=== PATIENT | female | born 1970 | race Caucasian/White ===

== ENCOUNTER 2018-06-24 12:44 | Inpatient (IN) | payer OTHER ==
[2018-06-24 13:55] VITALS: BMI 25.8
--- NOTE | 2018-06-24 18:03 | HP ---
CIWA Score Nausea/Vomitin-Int. Nausea w/Dry Heave Muscle Tremors: 4-Moderate,w/Arms Extend Anxiety: 1-Mildly Anxious Agitation: 1-Slight > Activity Paroxysmal Sweats: 3 (Increased facial moisture) Orientation: 1-Uncertain about Date Tacttile Disturbances: 0-None Auditory Disturbances: 0-None Visual Disturbances: 0-None Headache: 0-None Present CIWA-Ar Total Score: 14 - Admission Criteria [facility] Guidelines: Admission for Medically Managed Detox: Requires at least one of the followin. CIWA greater than 12 2. Seizures within the past 24 hours 3. Delirium tremens within the past 24 hours 4. Hallucinations within the past 24 hours 5. Acute intervention needed for co occurring medical disorder 6. Acute intervention needed for co occurring psychiatric disorder 7. Severe withdrawal that cannot be handled at a lower level of care (continued vomiting, continued diarrhea, abnormal vital signs) requiring intravenous medication and/or fluids 8. Patient presents the following: CIWA greater than 12 Admission Criteria Met: Admission criteria met Admission ROS [facility] Chief Complaint: Here for alcohol withdrawal. Allergies/Adverse Reactions: Allergies Allergy/AdvReac Type Severity Reaction Status Date / Time Penicillins Allergy Unknown Verified 06/24/18 18:04 diphenhydramine AdvReac Verified 06/24/18 18:38 [From Benadryl] History of Present Illness: Here for alcohol detox. Alcohol use began at age 29 Nicotine use began at age 23. Denies marijuana use. States around people that smoke marijuana. Patient states drinks day and night. States wants to stop. Last treatment attempt was 7 years ago and was a 28 day program. Longest length of sobriety 1 month. Denie hx seizures. Hx multiple blackouts. Hx Asthma and COPD; Vitamin deficiency (D and B) Hx PND associated w/ gagging Hx: Acid reflux Hx: Athletes foot Hx: Rash in private area x months. (See PE) Hx: Rib pain and has x-rays and MRI's w/o identification of problems. Pain is sometimes sharp, sometimes achy and is currently a '5'. Not associated w/ difficulty breathing. Denies vaginal discharge. Search Terms: Amelia Farrar, 1970 Search Date: 06/24/2018 05:29:46 PM The Drug Utilization Report below displays all of the controlled substance prescriptions, if any, that your patient has filled in the last twelve months. The information displayed on this report is compiled from pharmacy submissions to the Department, and accurately reflects the information as submitted by the pharmacies. This report was requested by: Emi Hernandez | Reference #: [id number] There are no results for the search terms that you entered. Exam Limitations: No Limitations - Ebola screening Have you traveled outside of the country in the last 21 days: No (N) Have you had contact with anyone from an Ebola affected area: No Have you been sick,other than usual withdrawal symptoms: No Do you have a fever: No - Review of Systems Constitutional: Diaphoresis, Changes in sleep (Difficulty falling asleep) EENT: reports: Blurred Vision, Nose Congestion (Has post nasal drip - frequent coughing r/t saliva going down wrong way), Other (Dry eyes - c/o eye irritation) Respiratory: reports: SOB with Exertion, Wheezing Cardiac: reports: No Symptoms Reported GI: reports: Constipated (Last BM watery yesterday.), Nausea, Vomiting (unsure of reason), Indigestion (Hx acid reflux) : reports: Incontinence ("I have a weak bladder". When I cough or throw up I pee) Musculoskeletal: reports: Other ((L) rib and flank pain, evaluated at several ER visits. Pain is sometimes sharp, sometimes achy and is currently a '5'. Not associated w/ difficulty breathing. Increases w/ cough. Present all the time.) Integumentary: reports: Rash (Private area - sometimes itchy.), Other (Athletes ' foot) Neuro: reports: Tremors Endocrine: reports: Increased Thirst Hematology: reports: No Symptoms Reported Psychiatric: reports: Judgement Intact, Agitated, Anxious, Depressed (Denies thoughts of harming self or others) Patient History - Patient Medical History Hx Asthma: Yes Hx Chronic Obstructive Pulmonary Disease (COPD): Yes Hx Cardiac Disorders: No Hx Congestive Heart Failure: No Hx Hypertension: No Hx Hypercholesterolemia: No Hx Pacemaker: No HX Cerebrovascular Accident: No Hx Seizures: No Hx Dementia: No Hx Diabetes: No Hx Gastrointestinal Disorders: Yes (Acid reflux) Hx Liver Disease: No Hx Sexually Transmitted Disorders: No Hx Renal Disease (ESRD): No Hx Thyroid Disease: No Hx Human Immunodeficiency Virus (HIV): No (years ago) Hx Hepatitis C: No Hx Depression: Yes - PPD History Previous Implant?: No Documented Results: Negative w/o proof Implanted On Prior R Admission?: No PPD to be Administered?: Yes - Reproductive History Patient is a Female of Child Bearing Age (11 -55 yrs old): Yes Last Menstrual Period: 05/22/18 Patient : No - Smoking Cessation Smoking history: Current every day smoker Have you smoked in the past 12 months: Yes Aproximately how many cigarettes per day: 10 Hx Chewing Tobacco Use: No Initiated information on smoking cessation: Yes 'Breaking Loose' booklet given: 06/24/18 - Substance & Tx. History Hx Alcohol Use: Yes Hx Substance Use: Yes Substance Use Type: Alcohol Hx Substance Use Treatment: Yes (28 day - 7 years ago, a few attempts on own) - Substances Abused Alcohol Route: Oral Frequency: Daily Amount used: liquor-1/2 gallon Age of first use: 29 Date of Last Use: 06/24/18 Admission Physical Exam [facility]HS - Vital Signs Vital Signs: Vital Signs - 24 hr 06/24/18 13:51 Temperature 98.1 F Pulse Rate 93 H Respiratory 18 Rate Blood Pressure 116/78 - Physical General Appearance: Yes: Within Normal Limits, Mild Distress, Alcohol on Breath , Tremorous, Sweating, Anxious HEENTM: Yes: EOMI, Hearing grossly Normal, Normocephalic, Normal Voice, GINNY, Nasal Congestion, Other (Bilateral Sclera w/ injection. Conjunctiva w/o increased erythema. No exudate/) Respiratory: Yes: Lungs Clear, Normal Breath Sounds, No Respiratory Distress Neck: Yes: No masses,lesions,Nodules, Supple Breast: Yes: Breast Exam Deferred Cardiology: Yes: Regular Rhythm, Regular Rate, S1, S2 Abdominal: Yes: Non Tender, Soft, Increased Bowel Sounds Genitourinary: Yes: Incontinient (Stress incontinence) Back: Yes: Normal Inspection Musculoskeletal: Yes: full range of Motion, Gait Steady Extremities: Yes: Normal Capillary Refill, Normal Range of Motion, Tremors ( Tremors of hands at rest and grossly increases when arms elevated) Neurological: Yes: qa consultant II-XII NML intact, Fully Oriented, Alert, Motor Strength 5/5, Normal Response Integumentary: Yes: Normal Color, Dry, Warm, Rash (Area of increased erythema w / 1 mm raised reddened lesions, non-pustular, at neck, inguinal folds, and buttock area.), Other (Thickened skin, cracks between toes. Thickened dark, flaky toenails.) Lymphatic: Yes: Within Normal Limits - Diagnostic (1) Alcohol dependence with uncomplicated withdrawal Current Visit: Yes Status: Acute (2) COPD with asthma Current Visit: Yes Status: Chronic (3) Acid reflux Current Visit: Yes Status: Chronic Qualifiers: Esophagitis presence: esophagitis presence not specified Qualified Code(s) : K21.9 - Gastro-esophageal reflux disease without esophagitis (4) Tinea pedis Current Visit: Yes Status: Chronic Qualifiers: Laterality: bilateral Qualified Code(s): B35.3 - Tinea pedis (5) Onychomycosis Current Visit: Yes Status: Chronic (6) Rash and nonspecific skin eruption Current Visit: Yes Status: Chronic (7) Vitamin deficiency, unspecified Current Visit: Yes Status: Chronic (8) Nicotine dependence, uncomplicated Current Visit: Yes Status: Chronic Qualifiers: Nicotine product type: cigarettes Qualified Code(s): F17.210 - Nicotine dependence, cigarettes, uncomplicated (9) Personal history of other diseases of urinary system Current Visit: Yes Status: Chronic Comment: States has stress incontinence (10) Bone pain Current Visit: Yes Status: Chronic Comment: Chronic (L) rib and bone pain w/ o evidence of pathology Cleared for Admission [facility] - Detox or Rehab [facility] Level of Care: Medically Managed Detox Regimen/Protocol: Librium [facility] Breath Alcohol Content Breath Alcohol Content: 0.211 Urine Pregancy Test - Result Urine Test Results: Negative- NO Line Present Urine Drug Screen - Results Drug Screen Negative: No Urine Drug Screen Results: THC-Marijuana
[2018-06-24] MEDS ORDERED: NICOTINE POLACRILEX 2 MG GUM BC PRN (18:51)
[2018-06-24] MEDS ORDERED: MAG HYDROX/AL HYDROX/SIMETH 30 ML UNIT-DOSE CUP PO PRN (18:51)
[2018-06-24] MEDS ORDERED: MAGNESIUM CITRATE 300 ML BOTTLE PO PRN (18:51)
[2018-06-24] MEDS ORDERED: LOPERAMIDE HCL 2 MG CAPSULE PO PRN (18:51)
[2018-06-24] MEDS ORDERED: MAGNESIUM HYDROX 2400MG/30ML ORAL SUSPENSION 30 ML CUP PO PRN (18:51)
[2018-06-24] MEDS ORDERED: ACETAMINOPHEN 325 MG TABLET (FP) PO PRN (18:51)
[2018-06-24] MEDS ORDERED: MENTHOL/PHENOL 1 EACH UD MM PRN (18:51)
[2018-06-24] MEDS ORDERED: hydrOXYzine PAMOATE 25 MG CAPSULE (FP) PO PRN (18:51)
[2018-06-24] MEDS ORDERED: IBUPROFEN 400 MG TABLET (FP) PO PRN (18:51)
[2018-06-24] MEDS ORDERED: ARTIFICIAL TEARS (POLYVINYL ALCOHOL) OPTH DROPS OU PRN (18:57)
[2018-06-24] MEDS ORDERED: chlordiazePOXIDE HCL 25 MG CAPSULE PO PRN (19:05)
[2018-06-24] MEDS ORDERED: chlordiazePOXIDE 5 MG CAPSULE PO ONE (19:35)
[2018-06-24] MEDS ORDERED: chlordiazePOXIDE 5 MG CAPSULE PO PRN (21:10)
[2018-06-24] MEDS: chlordiazePOXIDE HCL 25 MG CAPSULE PO SCH (22:13)
[2018-06-24] MEDS: P-EPHED 60MG/TRIPROLIDI 2.5MG TABLET PO SCH (22:13)
[2018-06-24] MEDS: TOLNAFTATE 1% CREAM 15 GM TUBE TP SCH (22:13)
[2018-06-24] MEDS: THIAMINE HCL 100 MG TABLET (FP) PO SCH (22:13)
[2018-06-24 23:06] LABS: URINE APPEARANCE SLCLOUDY; URINE BILIRUBIN NEGATIVE (<2.0 mg/dL); URINE COLOR AMBER; URINE GLUCOSE (UA) NEGATIVE (NEGATIVE); URINE KETONE NEGATIVE (NEGATIVE); URINE LEUK ESTERASE NEGATIVE (NEGATIVE); URINE NITRITE NEGATIVE (NEGATIVE); URINE PROTEIN 3+ (NEGATIVE); URINE UROBILINOGEN 4.0 E.U/dl mg/dL (0.2-1.0)
[2018-06-24 23:11] LABS: EPI CELLS FEW /HPF (FEW); URINE BACTERIA RARE /hpf (NONE SEEN); URINE MUCUS MANY
[2018-06-25] MEDS: chlordiazePOXIDE HCL 25 MG CAPSULE PO SCH ×3 (05:43→18:09)
[2018-06-25] MEDS: PRENATAL VITAMINS W/ FOLIC ACID TABLET (FP) PO SCH (10:20)
[2018-06-25] MEDS: NICOTINE 14 MG/24 HOURS TOPICAL PATCH TD SCH (10:20)
[2018-06-25] MEDS: PANTOPRAZOLE 20 MG TABLET (FP) PO SCH (10:20)
[2018-06-25] MEDS: TOLNAFTATE 1% CREAM 15 GM TUBE TP SCH ×2 (10:23→22:19)
[2018-06-25] MEDS: CLOTRIMAZOLE TP SCH ×3 (10:39→22:18)
[2018-06-25] MEDS: BETAMETHASONE DIPROPIONATE TP SCH ×3 (10:39→22:18)
[2018-06-25] MEDS: P-EPHED 60MG/TRIPROLIDI 2.5MG TABLET PO SCH ×2 (10:39→22:18)
[2018-06-25] MEDS: [UNRECOGNIZED DRUG - OTHER] TP SCH ×3 (10:39→22:18)
[2018-06-25 10:51] LABS: HEMATOCRIT 42.8 % (32.4-45.2); HEMOGLOBIN 14.3 GM/dL (10.7-15.3); MCH 32.2 pg (25.7-33.7); MCHC 33.3 g/dl (32.0-36.0); MEAN CELL VOLUME 96.7 fl (80-96); MEAN PLT VOLUME 8.5 fl (7.5-11.1); PLATELET COUNT 161 K/MM3 (134-434); RBC 4.42 M/mm3 (3.60-5.2); RDW 17.2 % (11.6-15.6); WHITE BLOOD COUNT 7.9 K/mm3 (4.0-10.0)
[2018-06-25 11:21] LABS: ALBUMIN 3.3 g/dl (3.4-5.0); ALK PHOS 189 U/L (45-117); ANION GAP 11 MMOL/L (8-16); BLOOD UREA NITROGEN 8 mg/dL (7-18); CALCIUM 8.7 mg/dL (8.5-10.1); CHLORIDE 96 mmol/L (98-107); CO2 29 mmol/L (21-32); CREATININE 0.7 mg/dL (0.55-1.3); GLUCOSE,RANDOM 112 mg/dL (74-106); SGOT/AST 127 U/L (15-37); SGPT/ALT 123 U/L (13-61); SODIUM 136 mmol/L (136-145); TOT PROT 7.3 g/dl (6.4-8.2)
[2018-06-25 11:27] LABS: POTASSIUM 2.9 mmol/L (3.5-5.1)
--- NOTE | 2018-06-25 13:51 | PN ---
S CIWA - CIWA Score Nausea/Vomitin Muscle Tremors: None Anxiety: 3 Agitation: 2 Paroxysmal Sweats: No Perspiration Orientation: 0-Oriented Tacttile Disturbances: 3-Moderate Itch/Numb/Burn Auditory Disturbances: 1-Very Mild Visual Disturbances: 2-Mild Sensitivity Headache: 0-None Present CIWA-Ar Total Score: 14 S Progress Note (SOAP) Subjective: Stomach Cramping, Interrupted Sleep, Nausea. Objective: PATIENT A & O X 3, OBSERVED AMBULATING ON UNIT. IN NO ACUTE DISTRESS. 06/25/18 13:49 Laboratory Tests 06/24/18 06/25/18 06/25/18 22:30 07:00 07:00 WBC 7.9 RBC 4.42 Hgb 14.3 Hct 42.8 MCV 96.7 H MCH 32.2 MCHC 33.3 RDW 17.2 H Plt Count 161 MPV 8.5 Sodium 136 Potassium 2.9 L* Chloride 96 L Carbon Dioxide 29 Anion Gap 11 BUN 8 Creatinine 0.7 Creat Clearance w eGFR > 60 Random Glucose 112 H Calcium 8.7 Total Bilirubin 1.0 AST 127 H ALT 123 H Alkaline Phosphatase 189 H Total Protein 7.3 Albumin 3.3 L Urine Color Jennifer Urine Appearance Slcloudy Urine pH 6.0 Ur Specific [place] 1.020 Urine Protein 3+ H Urine Glucose (UA) Negative Urine Ketones Negative Urine Blood 1+ H Urine Nitrite Negative Urine Bilirubin Negative Urine Urobilinogen 4.0 e.u/dl H Ur Leukocyte Esterase Negative Urine WBC (Auto) 6 Urine RBC (Auto) 6 Ur Epithelial Cells Few Urine Bacteria Rare Urine Mucus Many RPR Titer HIV 1&2 Antibody Screen HIV P24 Antigen 06/25/18 06/25/18 07:00 07:00 WBC RBC Hgb Hct MCV MCH MCHC RDW Plt Count MPV Sodium Potassium Chloride Carbon Dioxide Anion Gap BUN Creatinine Creat Clearance w eGFR Random Glucose Calcium Total Bilirubin AST ALT Alkaline Phosphatase Total Protein Albumin Urine Color Urine Appearance Urine pH Ur Specific [place] Urine Protein Urine Glucose (UA) Urine Ketones Urine Blood Urine Nitrite Urine Bilirubin Urine Urobilinogen Ur Leukocyte Esterase Urine WBC (Auto) Urine RBC (Auto) Ur Epithelial Cells Urine Bacteria Urine Mucus RPR Titer Nonreactive HIV 1&2 Antibody Screen Negative HIV P24 Antigen Negative LABS NOTED. Assessment: 06/25/18 13:49 WITHDRAWAL SYMPTOMS. HYPOKALEMIA. ELEVATED BP. ELEVATED LIVER ENZYMES. Plan: CONTINUE DETOX. INCREASE DAILY PO FLUID INTAKE. K-DUR, 40 MEQ PO X NOW, THEN 20 MEQ PO BID AFTER. RE-CHECK K LEVEL ON 2018. HFP ON 06/27/2018 FOR ELEVATED ADMISSION LIVER ENZYMES VALUES.
[2018-06-25] MEDS ORDERED: cloNIDine HCL 0.1 MG TABLET PO ONE (14:10)
[2018-06-25] MEDS ORDERED: POTASSIUM CHLORIDE TABS 20 MEQ TABLET.ER (FP) PO ONE (14:10)
--- NOTE | 2018-06-25 17:00 | EKG ---
Test Reason : Blood Pressure : / mmHG Vent. Rate : 093 BPM Atrial Rate : 093 BPM P-R Int : 120 ms QRS Dur : 082 ms QT Int : 368 ms P-R-T Axes : 009 023 033 degrees QTc Int : 457 ms NORMAL SINUS RHYTHM NONSPECIFIC ST ABNORMALITY ABNORMAL ECG NO PREVIOUS ECGS AVAILABLE Confirmed by MD IAN, ALBIN ([id number]) on 06/25/2018 5:00:33 PM Referred By: Confirmed By:ALBIN SOSA MD
[2018-06-25] MEDS: POTASSIUM CHLORIDE TABS 20 MEQ TABLET.ER (FP) PO SCH (18:09)
[2018-06-25] MEDS: THIAMINE HCL 100 MG TABLET (FP) PO SCH (22:19)
[2018-06-25] MEDS: chlordiazePOXIDE 5 MG CAPSULE PO SCH (22:20)
[2018-06-25] MEDS: MELATONIN 5 MG TABLETS PO PRN (22:37)
[2018-06-26] MEDS: chlordiazePOXIDE 5 MG CAPSULE PO SCH ×4 (05:45→22:36)
[2018-06-26] MEDS: POTASSIUM CHLORIDE TABS 20 MEQ TABLET.ER (FP) PO SCH ×2 (10:05→17:35)
[2018-06-26] MEDS: NICOTINE 14 MG/24 HOURS TOPICAL PATCH TD SCH (10:05)
[2018-06-26] MEDS: PRENATAL VITAMINS W/ FOLIC ACID TABLET (FP) PO SCH (10:06)
[2018-06-26] MEDS: TOLNAFTATE 1% CREAM 15 GM TUBE TP SCH ×2 (10:08→22:36)
[2018-06-26] MEDS: [UNRECOGNIZED DRUG - OTHER] TP SCH ×2 (10:08→22:37)
[2018-06-26] MEDS: BETAMETHASONE DIPROPIONATE TP SCH ×2 (10:08→22:37)
[2018-06-26] MEDS: CLOTRIMAZOLE TP SCH ×2 (10:08→22:37)
[2018-06-26] MEDS: P-EPHED 60MG/TRIPROLIDI 2.5MG TABLET PO SCH ×2 (10:37→22:36)
[2018-06-26] MEDS: PANTOPRAZOLE 20 MG TABLET (FP) PO SCH (11:28)
--- NOTE | 2018-06-26 12:09 | PN ---
S CIWA - CIWA Score Nausea/Vomitin-Mild Nausea/No Vomiting Muscle Tremors: 3 Anxiety: 2 Agitation: 2 Paroxysmal Sweats: 1-Minimal Palms Moist Orientation: 1-Uncertain about Date Tacttile Disturbances: 0-None Auditory Disturbances: 0-None Visual Disturbances: 0-None Headache: 2-Mild CIWA-Ar Total Score: 12 S Progress Note (SOAP) Subjective: tremor sweating anxiety Objective: 06/26/18 12:14 Vital Signs Temperature 97.5 F L 06/26/18 09:18 Pulse Rate 96 H 06/26/18 09:18 Respiratory Rate 20 06/26/18 09:18 Blood Pressure 145/99 06/26/18 09:18 O2 Sat by Pulse Oximetry (%) Laboratory Last Values WBC 7.9 K/mm3 (4.0-10.0) 06/25/18 07:00 RBC 4.42 M/mm3 (3.60-5.2) 06/25/18 07:00 Hgb 14.3 GM/dL (10.7-15.3) 06/25/18 07:00 Hct 42.8 % (32.4-45.2) 06/25/18 07:00 MCV 96.7 fl (80-96) H 06/25/18 07:00 MCH 32.2 pg (25.7-33.7) 06/25/18 07:00 MCHC 33.3 g/dl (32.0-36.0) 06/25/18 07:00 RDW 17.2 % (11.6-15.6) H 06/25/18 07:00 Plt Count 161 K/MM3 (134-434) 06/25/18 07:00 MPV 8.5 fl (7.5-11.1) 06/25/18 07:00 Sodium 136 mmol/L (136-145) 06/25/18 07:00 Potassium 2.9 mmol/L (3.5-5.1) L* 06/25/18 07:00 Chloride 96 mmol/L (98-107) L 06/25/18 07:00 Carbon Dioxide 29 mmol/L (21-32) 06/25/18 07:00 Anion Gap 11 MMOL/L (8-16) 06/25/18 07:00 BUN 8 mg/dL (7-18) 06/25/18 07:00 Creatinine 0.7 mg/dL (0.55-1.3) 06/25/18 07:00 Creat Clearance w eGFR > 60 (>60) 06/25/18 07:00 Random Glucose 112 mg/dL (74-106) H 06/25/18 07:00 Calcium 8.7 mg/dL (8.5-10.1) 06/25/18 07:00 Total Bilirubin 1.0 mg/dL (0.2-1) 06/25/18 07:00 AST 127 U/L (15-37) H 06/25/18 07:00 ALT 123 U/L (13-61) H 06/25/18 07:00 Alkaline Phosphatase 189 U/L (45-117) H 06/25/18 07:00 Total Protein 7.3 g/dl (6.4-8.2) 06/25/18 07:00 Albumin 3.3 g/dl (3.4-5.0) L 06/25/18 07:00 Urine Color Jennifer 06/24/18 22:30 Urine Appearance Slcloudy 06/24/18 22:30 Urine pH 6.0 (5.0-8.0) 06/24/18 22:30 Ur Specific [place] 1.020 (1.010-1.035) 06/24/18 22:30 Urine Protein 3+ (NEGATIVE) H 06/24/18 22:30 Urine Glucose (UA) Negative (NEGATIVE) 06/24/18 22:30 Urine Ketones Negative (NEGATIVE) 06/24/18 22:30 Urine Blood 1+ (NEGATIVE) H 06/24/18 22:30 Urine Nitrite Negative (NEGATIVE) 06/24/18 22:30 Urine Bilirubin Negative (<2.0 mg/dL) 06/24/18 22:30 Urine Urobilinogen 4.0 e.u/dl mg/dL (0.2-1.0) H 06/24/18 22:30 Ur Leukocyte Esterase Negative (NEGATIVE) 06/24/18 22:30 Urine WBC (Auto) 6 /hpf (3-5) 06/24/18 22:30 Urine RBC (Auto) 6 /hpf (0-3) 06/24/18 22:30 Ur Epithelial Cells Few /HPF (FEW) 06/24/18 22:30 Urine Bacteria Rare /hpf (NONE SEEN) 06/24/18 22:30 Urine Mucus Many 06/24/18 22:30 RPR Titer Nonreactive (NONREACTIVE) 06/25/18 07:00 HIV 1&2 Antibody Screen Negative 06/25/18 07:00 HIV P24 Antigen Negative 06/25/18 07:00 lab noted low K+ Assessment: 06/26/18 12:16 withdrawal sx continue K+ supplement Plan: continue detox repeat K+
[2018-06-26 17:46] LABS: URINE APPEARANCE CLOUDY; URINE BILIRUBIN NEGATIVE (<2.0 mg/dL); URINE COLOR DKYELLOW; URINE GLUCOSE (UA) NEGATIVE (NEGATIVE); URINE KETONE NEGATIVE (NEGATIVE); URINE LEUK ESTERASE NEGATIVE (NEGATIVE); URINE NITRITE NEGATIVE (NEGATIVE); URINE PROTEIN 1+ (NEGATIVE)
[2018-06-26 18:03] LABS: CALCIUM OXALATE CRYSTALS MODERATE /hpf (NONE SEEN); EPI CELLS MANY /HPF (FEW); URINE BACTERIA RARE /hpf (NONE SEEN); URINE MUCUS MANY
[2018-06-26] MEDS: THIAMINE HCL 100 MG TABLET (FP) PO SCH (22:36)
[2018-06-26] MEDS: MELATONIN 5 MG TABLETS PO PRN (22:37)
[2018-06-27] MEDS: chlordiazePOXIDE 5 MG CAPSULE PO SCH ×4 (05:52→22:12)
[2018-06-27] MEDS: NICOTINE 14 MG/24 HOURS TOPICAL PATCH TD SCH (10:16)
[2018-06-27] MEDS: PRENATAL VITAMINS W/ FOLIC ACID TABLET (FP) PO SCH (10:16)
[2018-06-27] MEDS: PANTOPRAZOLE 20 MG TABLET (FP) PO SCH (10:16)
[2018-06-27] MEDS: POTASSIUM CHLORIDE TABS 20 MEQ TABLET.ER (FP) PO SCH (10:16)
[2018-06-27] MEDS: TOLNAFTATE 1% CREAM 15 GM TUBE TP SCH ×2 (10:18→22:12)
[2018-06-27 10:24] LABS: ALBUMIN 2.9 g/dl (3.4-5.0); BILIRUBIN,DIRECT 0.3 mg/dL (0.0-0.2); BILIRUBIN,TOTAL 0.5 mg/dL (0.2-1); POTASSIUM 3.8 mmol/L (3.5-5.1); TOT PROT 6.4 g/dl (6.4-8.2)
[2018-06-27] MEDS: BETAMETHASONE DIPROPIONATE TP SCH ×2 (10:35→22:12)
[2018-06-27] MEDS: P-EPHED 60MG/TRIPROLIDI 2.5MG TABLET PO SCH ×2 (10:35→22:12)
[2018-06-27] MEDS: [UNRECOGNIZED DRUG - OTHER] TP SCH ×2 (10:35→22:12)
[2018-06-27] MEDS: CLOTRIMAZOLE TP SCH ×2 (10:35→22:12)
[2018-06-27] MEDS ORDERED: cloNIDine HCL 0.1 MG TABLET PO PRN (12:07)
--- NOTE | 2018-06-27 12:09 | PN ---
[facility] Progress Note (SOAP) Subjective: feeling better less tremor mild sweating social with peers in day room Objective: 06/27/18 12:11 Vital Signs Temperature 96.1 F L 06/27/18 09:25 Pulse Rate 104 H 06/27/18 09:25 Respiratory Rate 18 06/27/18 09:25 Blood Pressure 112/74 06/27/18 09:25 O2 Sat by Pulse Oximetry (%) Laboratory Last Values WBC 7.9 K/mm3 (4.0-10.0) 06/25/18 07:00 RBC 4.42 M/mm3 (3.60-5.2) 06/25/18 07:00 Hgb 14.3 GM/dL (10.7-15.3) 06/25/18 07:00 Hct 42.8 % (32.4-45.2) 06/25/18 07:00 MCV 96.7 fl (80-96) H 06/25/18 07:00 MCH 32.2 pg (25.7-33.7) 06/25/18 07:00 MCHC 33.3 g/dl (32.0-36.0) 06/25/18 07:00 RDW 17.2 % (11.6-15.6) H 06/25/18 07:00 Plt Count 161 K/MM3 (134-434) 06/25/18 07:00 MPV 8.5 fl (7.5-11.1) 06/25/18 07:00 Sodium 136 mmol/L (136-145) 06/25/18 07:00 Potassium 3.8 mmol/L (3.5-5.1) 06/27/18 07:00 Chloride 96 mmol/L (98-107) L 06/25/18 07:00 Carbon Dioxide 29 mmol/L (21-32) 06/25/18 07:00 Anion Gap 11 MMOL/L (8-16) 06/25/18 07:00 BUN 8 mg/dL (7-18) 06/25/18 07:00 Creatinine 0.7 mg/dL (0.55-1.3) 06/25/18 07:00 Creat Clearance w eGFR > 60 (>60) 06/25/18 07:00 Random Glucose 112 mg/dL (74-106) H 06/25/18 07:00 Calcium 8.7 mg/dL (8.5-10.1) 06/25/18 07:00 Total Bilirubin 0.5 mg/dL (0.2-1) 06/27/18 07:00 Direct Bilirubin 0.3 mg/dL (0.0-0.2) H 06/27/18 07:00 AST 118 U/L (15-37) H 06/27/18 07:00 ALT 98 U/L (13-61) H 06/27/18 07:00 Alkaline Phosphatase 173 U/L (45-117) H 06/27/18 07:00 Total Protein 6.4 g/dl (6.4-8.2) 06/27/18 07:00 Albumin 2.9 g/dl (3.4-5.0) L 06/27/18 07:00 Urine Color Dkyellow 06/26/18 14:37 Urine Appearance Cloudy 06/26/18 14:37 Urine pH 7.0 (5.0-8.0) 06/26/18 14:37 Ur Specific [place] 1.015 (1.010-1.035) 06/26/18 14:37 Urine Protein 1+ (NEGATIVE) H D 06/26/18 14:37 Urine Glucose (UA) Negative (NEGATIVE) 06/26/18 14:37 Urine Ketones Negative (NEGATIVE) 06/26/18 14:37 Urine Blood Negative (NEGATIVE) 06/26/18 14:37 Urine Nitrite Negative (NEGATIVE) 06/26/18 14:37 Urine Bilirubin Negative (<2.0 mg/dL) 06/26/18 14:37 Urine Urobilinogen 2.0 mg/dL (0.2-1.0) H 06/26/18 14:37 Ur Leukocyte Esterase Negative (NEGATIVE) 06/26/18 14:37 Urine WBC (Auto) None /hpf (3-5) 06/26/18 14:37 Urine RBC (Auto) None /hpf (0-3) 06/26/18 14:37 Ur Epithelial Cells Many /HPF (FEW) 06/26/18 14:37 Calcium Oxalate Crystal Moderate /hpf (NONE SEEN) 06/26/18 14:37 Urine Bacteria Rare /hpf (NONE SEEN) 06/26/18 14:37 Urine Mucus Many 06/26/18 14:37 RPR Titer Nonreactive (NONREACTIVE) 06/25/18 07:00 HIV 1&2 Antibody Screen Negative 06/25/18 07:00 HIV P24 Antigen Negative 06/25/18 07:00 lab noted Assessment: 06/27/18 12:12 mild withdrawal sx Plan: continue detox
[2018-06-27] MEDS: THIAMINE HCL 100 MG TABLET (FP) PO SCH (22:12)
[2018-06-27] MEDS: MELATONIN 5 MG TABLETS PO PRN (22:13)
[2018-06-28] MEDS: chlordiazePOXIDE 5 MG CAPSULE PO SCH (05:26)
[2018-06-28 06:22] VITALS: BP 127/85; PULSE 106; TEMP 97.9
--- NOTE | 2018-06-28 14:55 | DS ---
[facility] Detox Discharge Summary Admission Date: 06/24/18 Discharge Date: 06/28/18 - History Present History: Alcohol Dependence Additional Comments: PATIENT LEFT DETOX UNIT EARLY PRIOR TO TIME OF ARRIVAL OF POLICE MAGISTRATE ON UNIT. THUS, PRE- DISCHARGE MEDICAL EVALUATION UNABLE TO BE DONE. PER COMPLIANCE AUDITOR Modesto WHITFIELD , PATIENT GOING HOME FOR TIME BEING, THEN WILL ATTEND '[facility]' ([place], [place]) FOR AFTERCARE. Pertinent Past History: Asthma, Depression, C.O.P.D., History of Disease of Urinary System, Bone Pain, History of Skin Rash (Non-Specific Skin Eruption), Tinea Pedis, Onchomycosis, Acid Reflux, History of Vitamin Deficiency, Nicotine Dependence. - Physical Exam Results Vital Signs: Vital Signs Temperature 97.9 F 06/28/18 06:21 Pulse Rate 106 H 06/28/18 06:21 Respiratory Rate 18 06/28/18 06:21 Blood Pressure 127/85 06/28/18 06:21 O2 Sat by Pulse Oximetry (%) Pertinent Admission Physical Exam Findings: WITHDRAWAL SYMPTOMS. Laboratory Tests 06/24/18 06/25/18 06/25/18 22:30 07:00 07:00 WBC 7.9 RBC 4.42 Hgb 14.3 Hct 42.8 MCV 96.7 H MCH 32.2 MCHC 33.3 RDW 17.2 H Plt Count 161 MPV 8.5 Sodium 136 Potassium 2.9 L* Chloride 96 L Carbon Dioxide 29 Anion Gap 11 BUN 8 Creatinine 0.7 Creat Clearance w eGFR > 60 Random Glucose 112 H Calcium 8.7 Total Bilirubin 1.0 Direct Bilirubin AST 127 H ALT 123 H Alkaline Phosphatase 189 H Total Protein 7.3 Albumin 3.3 L Urine Color Jennifer Urine Appearance Slcloudy Urine pH 6.0 Ur Specific [place] 1.020 Urine Protein 3+ H Urine Glucose (UA) Negative Urine Ketones Negative Urine Blood 1+ H Urine Nitrite Negative Urine Bilirubin Negative Urine Urobilinogen 4.0 e.u/dl H Ur Leukocyte Esterase Negative Urine WBC (Auto) 6 Urine RBC (Auto) 6 Ur Epithelial Cells Few Calcium Oxalate Crystal Urine Bacteria Rare Urine Mucus Many RPR Titer HIV 1&2 Antibody Screen HIV P24 Antigen 06/25/18 06/25/18 06/26/18 07:00 07:00 14:37 WBC RBC Hgb Hct MCV MCH MCHC RDW Plt Count MPV Sodium Potassium Chloride Carbon Dioxide Anion Gap BUN Creatinine Creat Clearance w eGFR Random Glucose Calcium Total Bilirubin Direct Bilirubin AST ALT Alkaline Phosphatase Total Protein Albumin Urine Color Dkyellow Urine Appearance Cloudy Urine pH 7.0 Ur Specific [place] 1.015 Urine Protein 1+ H D Urine Glucose (UA) Negative Urine Ketones Negative Urine Blood Negative Urine Nitrite Negative Urine Bilirubin Negative Urine Urobilinogen 2.0 H Ur Leukocyte Esterase Negative Urine WBC (Auto) None Urine RBC (Auto) None Ur Epithelial Cells Many Calcium Oxalate Crystal Moderate Urine Bacteria Rare Urine Mucus Many RPR Titer Nonreactive HIV 1&2 Antibody Screen Negative HIV P24 Antigen Negative 06/27/18 07:00 WBC RBC Hgb Hct MCV MCH MCHC RDW Plt Count MPV Sodium Potassium 3.8 Chloride Carbon Dioxide Anion Gap BUN Creatinine Creat Clearance w eGFR Random Glucose Calcium Total Bilirubin 0.5 Direct Bilirubin 0.3 H AST 118 H ALT 98 H Alkaline Phosphatase 173 H Total Protein 6.4 Albumin 2.9 L Urine Color Urine Appearance Urine pH Ur Specific [place] Urine Protein Urine Glucose (UA) Urine Ketones Urine Blood Urine Nitrite Urine Bilirubin Urine Urobilinogen Ur Leukocyte Esterase Urine WBC (Auto) Urine RBC (Auto) Ur Epithelial Cells Calcium Oxalate Crystal Urine Bacteria Urine Mucus RPR Titer HIV 1&2 Antibody Screen HIV P24 Antigen LABS NOTED. - Treatment Hospital Course: Detox Protocol Followed, Detoxed Safely, Responded well, Discharged Condition Good Patient has Accepted a Rehab Referral to: [facility] ([place], [place]). - Medication Discharge Medications: Ambulatory Orders Clotrimazole/Betamet Diprop [Lotrisone -] 1 applic TP BID 06/24/18 Nystatin Powder [Nystop Powder -] 15 gm TP BID 06/24/18 Omeprazole 20 mg PO DAILY 06/24/18 Terbinafine HCl 250 mg PO DAILY 06/24/18 Albuterol Sulfate Inhaler - [Ventolin HFA Inhaler -] 2 inh PO Q6H #1 inhaler Albuterol Sulfate Inhaler - [Ventolin HFA Inhaler -] 2 inh PO Q6H #1 inhaler Budesonide/Formeterol Fumarate [SYMBICORT 80/4.5mcg -] 1 inh PO DAILY #1 inhaler 06/27/18 - Diagnosis (1) Alcohol dependence with uncomplicated withdrawal Status: Acute (2) Onychomycosis Status: Chronic (3) Personal history of other diseases of urinary system Status: Chronic (4) Rash and nonspecific skin eruption Status: Chronic (5) Tinea pedis Status: Chronic Qualifiers: Laterality: bilateral Qualified Code(s): B35.3 - Tinea pedis (6) Vitamin deficiency, unspecified Status: Chronic (7) Bone pain Status: Chronic (8) COPD with asthma Status: Chronic (9) Nicotine dependence, uncomplicated Status: Chronic Qualifiers: Nicotine product type: cigarettes Qualified Code(s): F17.210 - Nicotine dependence, cigarettes, uncomplicated - AMA Did Patient Leave Against Medical Advice: No
== END 2018-06-28 07:05 | disposition home or self-care (01) | DRG 775 ==
LOC: YASAS 12:44 → Y3N 18:51
PROVIDERS: ADMIT Neuromusculoskeletal Medicine & OMM; ATTEND Neuromusculoskeletal Medicine & OMM
PROC: HZ2ZZZZ Detoxification Services for Substance Abuse Treatment (ICD-10-PCS; principal; 2018-06-24)
DX: F10.230 Alcohol dependence with withdrawal, uncomplicated (principal); F17.210 Nicotine dependence, cigarettes, uncomplicated; E87.6 Hypokalemia; E56.9 Vitamin deficiency, unspecified; J44.9 Chronic obstructive pulmonary disease, unspecified; J45.909 Unspecified asthma, uncomplicated; B35.1 Tinea unguium; B35.3 Tinea pedis; R03.0 Elevated blood-pressure reading, without diagnosis of hypertension; R74.8 Abnormal levels of other serum enzymes; M89.8X9 Other specified disorders of bone, unspecified site; Z87.448 Personal history of other diseases of urinary system; Z88.8 Allergy status to other drugs, medicaments and biological substances
CPT/HCPCS: 36415; 80053; 80076; 81003; 81015; 84132; 85027; 86593; 87389; 93005; 93010; J0735